=== PATIENT | female | born 1990 | race Caucasian/White ===

== ENCOUNTER 2021-07-18 03:56 | Emergency (ER) | payer SELFPAY ==
--- NOTE | 2021-07-18 03:58 | W.ED.OVERDOS ---
Documented by User: Vikram Joshi MD 08/01/21 22:49 HPI - Overdose General: Chief Complaint: Dental/Oral Stated Complaint: od Time Seen by Provider: 07/18/21 03:58 History of Present Illness: Ms. Finch is a 30-year-old lady without significant past medical history who presents to the emergency department due to concern over overdose. She reports having a broken tooth and dental pain and starting Monday (2 days ago) started taking Tylenol and Aleve. She estimates since that time she has taken approximately 20 tablets of Tylenol and 10 to 12 tablets of Aleve. Last night she awoke from sleep with epigastric discomfort associated with nausea, flushed feeling, and near syncope. She does endorse generalized abdominal pain and a history of intermittent epigastric pain after eating. Overall course of symptoms improved since worst and at worst was moderate to severe in intensity and now moderate to mild. No history of abdominal surgeries. Did have 1 episode of loose stools. Patient adamantly denies suicidal intent or history of psychiatric/suicide attempts. No other specific changes in health, exacerbating, or alleviating factors identified. Onset (ago): day(s) Review of Systems General: Reports: 10 or more systems reviewed and unremarkable except in HPI and below PFSH ED PFSH: Medical History No significant past medical history Surgical History No significant past surgical history Social History Smoking and tobacco status: never smoked Alcohol intake: never Substance/Drug Use: never Physical Exam Const: COMMON NORMALS: alert GENERAL APPEARANCE: cooperative and well developed HENMT: COMMON NORMALS: normocephalic and atraumatic HEAD & SCALP: normocephalic and atraumatic THROAT: posterior oropharynx normal OTHER: Poor dentition, most notably patient has broken tooth right lower, no evidence of abscess. Eye: COMMON NORMALS: conjunctivae normal CONJUNCTIVA: Yes conjunctivae normal SCLERA: sclerae normal Neck/C-Spine: COMMON NORMALS: supple GENERAL: Yes trachea midline Resp: COMMON NORMALS: normal respiratory effort EFFORT & INSPECTION: Yes able to speak in complete sentences Cardio: COMMON NORMALS: regular rate and regular rhythm RATE: regular rate RHYTHM: regular rhythm GI: COMMON NORMALS: Soft to palpation PALPATION: Yes Soft to palpation, Yes Tenderness to palpation present (GI), No Guarding due to palpation present (GI) and No Rigid due to palpation PERCUSSION: normal to percussion Extremity: GENERAL: Yes normal exam except as noted and No edema Neuro: COMMON NORMALS: moves all extremities SENSORIUM/ORIENTATION: Yes alert and No Orientation impaired Psych: COMMON NORMALS: mental status grossly normal and Normal thought process present THOUGHT PROCESS: Normal thought process present Course ED course: - Patient was seen and evaluated by me at bedside - Patient placed on cardiac monitors, IV access obtained - Initial evaluation notable for exam as above. Adamantly denies suicidal intent or taking medication - Labs personally interpreted by me -Fluids and symptom treatment ordered - Labs notable for leukocytosis, no significant metabolic abnormalities. Urinalysis with squamous epithelial contamination. - Patient care handed off to morning ED physician Dr. Cheng pending results of abdominal ultrasound. Likely plan for discharge. Vital Signs: Vital signs: Vital Signs Pulse Rate 73 07/18/21 06:45 Respiratory Rate 18 07/18/21 06:45 Blood Pressure 106/62 07/18/21 06:45 Pulse Oximetry 97 07/18/21 06:45 MDM - Overdose Medical Decision Making 30-year-old presenting due to concern of nausea and vomiting as well as abdominal pain associated with likely mild overdose of [id number] medications in treating dental pain. No evidence of dental abscess, poor dentition with fractured tooth identified. Labs notable for leukocytosis. Ultrasound pending at time of patient care handoff. Took patient over from Dr. Lyle patient been having some abdominal pain ultrasound here is normal blood work is normal as well she feels improved we will prescribe her PPI along with Zofran she is to follow-up with PCP and return if worsening. Medical Records I reviewed the patient's medical records. Lab Data I reviewed the patient's lab results. : 07/18/21 04:20 07/18/21 04:20 Radiology Impressions Abdomen Ultrasound 07/18/21 05:02 IMPRESSION: No acute sonographic abnormality in the visualized right upper quadrant. Laboratory Results WBC 15.5 10^3/uL (4.0-10.0) H 07/18/21 04:20 RBC 4.72 10^6/uL (4.1-5.3) 07/18/21 04:20 Hgb 13.9 g/dL (11.5-15.3) 07/18/21 04:20 Hct 42.0 % (37.0-47.0) 07/18/21 04:20 MCV 89.0 fl (81-99) 07/18/21 04:20 MCH 29.4 pg (28.0-34.0) 07/18/21 04:20 MCHC 33.1 g/dL (30.0-36.0) 07/18/21 04:20 RDW 11.8 % (12.1-15.1) L 07/18/21 04:20 Plt Count 318 10^3/cmm (130-400) 07/18/21 04:20 MPV 9.3 fL (7.4-10.4) 07/18/21 04:20 Neut % (Auto) 85.4 % 07/18/21 04:20 Lymph % (Auto) 7.0 % 07/18/21 04:20 [place] % (Auto) 6.7 % 07/18/21 04:20 Eos % (Auto) 0.2 % 07/18/21 04:20 Baso % (Auto) 0.3 % 07/18/21 04:20 Neut # (Auto) 13.23 10^3/uL (1.8-7.7) H 07/18/21 04:20 Lymph # (Auto) 1.1 10^3/uL (0.8-4.8) 07/18/21 04:20 [place] # (Auto) 1.0 10^3/uL (0.2-0.9) H 07/18/21 04:20 Eos # (Auto) 0.0 10^3/uL (0.0-0.8) 07/18/21 04:20 Baso # (Auto) 0.0 10^3/uL (0.0-0.1) 07/18/21 04:20 Nucleated RBC % (auto) 0 % 07/18/21 04:20 Nucleated RBCs # 0.0 /100WBC 07/18/21 04:20 Sodium 137 mmol/L (136-145) 07/18/21 04:20 Potassium 3.7 mmol/L (3.5-5.1) 07/18/21 04:20 Chloride 101 mmol/L (98-107) 07/18/21 04:20 Carbon Dioxide 23 mmol/L (22-29) 07/18/21 04:20 Anion Gap 16.7 (5-19) 07/18/21 04:20 BUN 14 mg/dL (6-20) 07/18/21 04:20 Creatinine 0.7 mg/dL (0.5-0.9) 07/18/21 04:20 GFR Calculation 98.3 mL/min (90-130) 07/18/21 04:20 Glucose 121 mg/dL (65-115) H 07/18/21 04:20 Calculated Osmolality 286 mOsm/kg (285-295) 07/18/21 04:20 Calcium 8.7 mg/dL (8.5-10.5) 07/18/21 04:20 Total Bilirubin 0.3 mg/dL (0.15-1.2) 07/18/21 04:20 AST 21 U/L (0-32) 07/18/21 04:20 ALT 26 U/L (0-33) 07/18/21 04:20 Alkaline Phosphatase 49 IU/L (35-105) 07/18/21 04:20 Total Protein 7.3 g/dL (6.6-8.7) 07/18/21 04:20 Albumin 4.6 g/dL (3.5-5.2) 07/18/21 04:20 Globulin 2.7 g/dL (1.3-4.6) 07/18/21 04:20 Lipase 12 U/L (13-60) L 07/18/21 04:20 HCG, Qual Negative (Negative) 07/18/21 04:20 Urine Color Dark yellow (Yellow) 07/18/21 04:20 Urine Appearance Clear (CLEAR) 07/18/21 04:20 Urine pH 6.5 (5-7) 07/18/21 04:20 Ur Specific Jew[place] 1.015 (1.005-1.030) 07/18/21 04:20 Urine Protein 2+ (Negative) H 07/18/21 04:20 Urine Glucose (UA) Norm (Normal) 07/18/21 04:20 Urine Ketones 2+ (Negative) H 07/18/21 04:20 Urine Blood Neg (Negative) 07/18/21 04:20 Urine Nitrate Negative (Negative) 07/18/21 04:20 Urine Bilirubin 1+ (Negative) H 07/18/21 04:20 Urine Urobilinogen 1 mg/dL (Negative) H 07/18/21 04:20 Ur Leukocyte Esterase 1+ (Negative) H 07/18/21 04:20 Urine RBC 0-4 /hpf (0-2) H 07/18/21 04:20 Urine WBC 25-40 /hpf (0-5) H 07/18/21 04:20 Ur Squamous Epith Cells 15-25 /hpf (0-5) H 07/18/21 04:20 Amorphous Sediment Not Reportable 07/18/21 04:20 Urine Bacteria 3+ /hpf (NONE) H 07/18/21 04:20 Urine Mucus 3+ /hpf 07/18/21 04:20 Salicylates 11.9 mg/dL (3-10) H 07/18/21 04:20 Urine Opiates Screen Negative ng/mL (Negative) 07/18/21 04:20 Acetaminophen 6.3 ug/mL (10-30) L 07/18/21 04:20 Ur Barbiturates Screen Positive ng/mL (Negative) H 07/18/21 04:20 Ur Phencyclidine Scrn Negative ng/mL (Negative) 07/18/21 04:20 Ur Amphetamines Screen Negative ng/mL (Negative) 07/18/21 04:20 U Benzodiazepines Scrn Positive ng/mL (Negative) H 07/18/21 04:20 Urine Cocaine Screen Negative ng/mL (Negative) 07/18/21 04:20 U Marijuana (THC) Screen Negative ng/mL (Negative) 07/18/21 04:20 Ethyl Alcohol < 10 mg/dL (0-10) 07/18/21 04:20 Discharge Plan Discharge Patient Disposition: Home Clinical Impression: Nausea and vomiting, Abdominal pain, Pain, dental, Leukocytosis Condition: Stable Prescriptions: New ondansetron 4 mg tablet,disintegrating 4 mg PO Q8H PRN (Reason: nausea and vomiting) Qty: 15 0RF hydrocodone-acetaminophen 5-325 mg tablet 1 tab PO Q6H PRN (Reason: pain) Qty: 10 0RF ondansetron 4 mg tablet,disintegrating 4 mg PO Q6H PRN (Reason: nausea and vomiting) Qty: 14 0RF Discharge Orders: Discharge ED (Routine); Ordered 07/18/21 Ordered By: Kitty Cheng Referrals: Jhonny Duncan MD [Physician] - [facility], [Staff Physician] - Discharge Diet: Advance as tolerated and Clear Liquid Discharge Activity: Increase activity as tolerated Patient Instructions: Dehydration (ED), Acute Nausea and Vomiting (ED), Abdominal Pain (ED) Activity Restrictions/Additional Instructions: Thank you for visiting the emergency department. You were seen and evaluated for nausea, vomiting, abdominal pain and generalized symptoms. The exact cause of your symptoms is unclear. You do have evidence of dehydration. The most common cause of the symptoms is viral in nature and I would expect these to improve over the next few days. Please ensure that you are staying hydrated and stick to clear liquids for the next 24 hours and then introduce bland foods as tolerated. I will prescribe the proton pump inhibitor to help with any gastritis, you may also use [id number] medications however please do not exceed the recommended dosages and please avoid NSAIDs. I will also prescribe antinausea medications. Please follow-up with your primary care provider. Please establish with a primary care provider if you do not currently have one. Please follow-up with a dentist. Return to the emergency department for inability tolerate oral intake, uncontrolled pain, or anything else that you are concerned about a feel needs emergency department evaluation. Coding Level of Care Code ED Lastex Operator for Chg Fwd Exam Comprehensive Documented by User: Kitty Cheng MD 07/18/21 06:37 HPI - Overdose General: Chief Complaint: Dental/Oral Stated Complaint: od Time Seen by Provider: 07/18/21 03:58 [facility] ED PFSH: Medical History No significant past medical history Surgical History No significant past surgical history Social History Smoking and tobacco status: never smoked Alcohol intake: never Substance/Drug Use: never Course Vital Signs: Vital signs: Vital Signs Pulse Rate 73 07/18/21 06:45 Respiratory Rate 18 07/18/21 06:45 Blood Pressure 106/62 07/18/21 06:45 Pulse Oximetry 97 07/18/21 06:45 MDM - Overdose Medical Decision Making Took patient over from Dr. Lyle patient been having some abdominal pain ultrasound here is normal blood work is normal as well she feels improved we will prescribe her PPI along with Zofran she is to follow-up with PCP and return if worsening. Lab Data : 07/18/21 04:20 07/18/21 04:20 Radiology Impressions Abdomen Ultrasound 07/18/21 05:02 IMPRESSION: No acute sonographic abnormality in the visualized right upper quadrant. Laboratory Results WBC 15.5 10^3/uL (4.0-10.0) H 07/18/21 04:20 RBC 4.72 10^6/uL (4.1-5.3) 07/18/21 04:20 Hgb 13.9 g/dL (11.5-15.3) 07/18/21 04:20 Hct 42.0 % (37.0-47.0) 07/18/21 04:20 MCV 89.0 fl (81-99) 07/18/21 04:20 MCH 29.4 pg (28.0-34.0) 07/18/21 04:20 MCHC 33.1 g/dL (30.0-36.0) 07/18/21 04:20 RDW 11.8 % (12.1-15.1) L 07/18/21 04:20 Plt Count 318 10^3/cmm (130-400) 07/18/21 04:20 MPV 9.3 fL (7.4-10.4) 07/18/21 04:20 Neut % (Auto) 85.4 % 07/18/21 04:20 Lymph % (Auto) 7.0 % 07/18/21 04:20 [place] % (Auto) 6.7 % 07/18/21 04:20 Eos % (Auto) 0.2 % 07/18/21 04:20 Baso % (Auto) 0.3 % 07/18/21 04:20 Neut # (Auto) 13.23 10^3/uL (1.8-7.7) H 07/18/21 04:20 Lymph # (Auto) 1.1 10^3/uL (0.8-4.8) 07/18/21 04:20 [place] # (Auto) 1.0 10^3/uL (0.2-0.9) H 07/18/21 04:20 Eos # (Auto) 0.0 10^3/uL (0.0-0.8) 07/18/21 04:20 Baso # (Auto) 0.0 10^3/uL (0.0-0.1) 07/18/21 04:20 Nucleated RBC % (auto) 0 % 07/18/21 04:20 Nucleated RBCs # 0.0 /100WBC 07/18/21 04:20 Sodium 137 mmol/L (136-145) 07/18/21 04:20 Potassium 3.7 mmol/L (3.5-5.1) 07/18/21 04:20 Chloride 101 mmol/L (98-107) 07/18/21 04:20 Carbon Dioxide 23 mmol/L (22-29) 07/18/21 04:20 Anion Gap 16.7 (5-19) 07/18/21 04:20 BUN 14 mg/dL (6-20) 07/18/21 04:20 Creatinine 0.7 mg/dL (0.5-0.9) 07/18/21 04:20 GFR Calculation 98.3 mL/min (90-130) 07/18/21 04:20 Glucose 121 mg/dL (65-115) H 07/18/21 04:20 Calculated Osmolality 286 mOsm/kg (285-295) 07/18/21 04:20 Calcium 8.7 mg/dL (8.5-10.5) 07/18/21 04:20 Total Bilirubin 0.3 mg/dL (0.15-1.2) 07/18/21 04:20 AST 21 U/L (0-32) 07/18/21 04:20 ALT 26 U/L (0-33) 07/18/21 04:20 Alkaline Phosphatase 49 IU/L (35-105) 07/18/21 04:20 Total Protein 7.3 g/dL (6.6-8.7) 07/18/21 04:20 Albumin 4.6 g/dL (3.5-5.2) 07/18/21 04:20 Globulin 2.7 g/dL (1.3-4.6) 07/18/21 04:20 Lipase 12 U/L (13-60) L 07/18/21 04:20 HCG, Qual Negative (Negative) 07/18/21 04:20 Urine Color Dark yellow (Yellow) 07/18/21 04:20 Urine Appearance Clear (CLEAR) 07/18/21 04:20 Urine pH 6.5 (5-7) 07/18/21 04:20 Ur Specific [place] 1.015 (1.005-1.030) 07/18/21 04:20 Urine Protein 2+ (Negative) H 07/18/21 04:20 Urine Glucose (UA) Norm (Normal) 07/18/21 04:20 Urine Ketones 2+ (Negative) H 07/18/21 04:20 Urine Blood Neg (Negative) 07/18/21 04:20 Urine Nitrate Negative (Negative) 07/18/21 04:20 Urine Bilirubin 1+ (Negative) H 07/18/21 04:20 Urine Urobilinogen 1 mg/dL (Negative) H 07/18/21 04:20 Ur Leukocyte Esterase 1+ (Negative) H 07/18/21 04:20 Urine RBC 0-4 /hpf (0-2) H 07/18/21 04:20 Urine WBC 25-40 /hpf (0-5) H 07/18/21 04:20 Ur Squamous Epith Cells 15-25 /hpf (0-5) H 07/18/21 04:20 Amorphous Sediment Not Reportable 07/18/21 04:20 Urine Bacteria 3+ /hpf (NONE) H 07/18/21 04:20 Urine Mucus 3+ /hpf 07/18/21 04:20 Salicylates 11.9 mg/dL (3-10) H 07/18/21 04:20 Urine Opiates Screen Negative ng/mL (Negative) 07/18/21 04:20 Acetaminophen 6.3 ug/mL (10-30) L 07/18/21 04:20 Ur Barbiturates Screen Positive ng/mL (Negative) H 07/18/21 04:20 Ur Phencyclidine Scrn Negative ng/mL (Negative) 07/18/21 04:20 Ur Amphetamines Screen Negative ng/mL (Negative) 07/18/21 04:20 U Benzodiazepines Scrn Positive ng/mL (Negative) H 07/18/21 04:20 Urine Cocaine Screen Negative ng/mL (Negative) 07/18/21 04:20 U Marijuana (THC) Screen Negative ng/mL (Negative) 07/18/21 04:20 Ethyl Alcohol < 10 mg/dL (0-10) 07/18/21 04:20 Discharge Plan Discharge Patient Disposition: Home Clinical Impression: Nausea and vomiting, Abdominal pain, Pain, dental, Leukocytosis Condition: Stable Prescriptions: New ondansetron 4 mg tablet,disintegrating 4 mg PO Q8H PRN (Reason: nausea and vomiting) Qty: 15 0RF hydrocodone-acetaminophen 5-325 mg tablet 1 tab PO Q6H PRN (Reason: pain) Qty: 10 0RF ondansetron 4 mg tablet,disintegrating 4 mg PO Q6H PRN (Reason: nausea and vomiting) Qty: 14 0RF Discharge Orders: Discharge ED (Routine); Ordered 07/18/21 Ordered By: Kitty Cheng Referrals: Jhonny Duncan MD [Physician] - [facility], [Staff Physician] - Discharge Diet: Advance as tolerated and Clear Liquid Discharge Activity: Increase activity as tolerated Patient Instructions: Dehydration (ED), Acute Nausea and Vomiting (ED), Abdominal Pain (ED) Activity Restrictions/Additional Instructions: Thank you for visiting the emergency department. You were seen and evaluated for nausea, vomiting, abdominal pain and generalized symptoms. The exact cause of your symptoms is unclear. You do have evidence of dehydration. The most common cause of the symptoms is viral in nature and I would expect these to improve over the next few days. Please ensure that you are staying hydrated and stick to clear liquids for the next 24 hours and then introduce bland foods as tolerated. I will prescribe the proton pump inhibitor to help with any gastritis, you may also use [id number] medications however please do not exceed the recommended dosages and please avoid NSAIDs. I will also prescribe antinausea medications. Please follow-up with your primary care provider. Please establish with a primary care provider if you do not currently have one. Please follow-up with a dentist. Return to the emergency department for inability tolerate oral intake, uncontrolled pain, or anything else that you are concerned about a feel needs emergency department evaluation. Coding Level of Care Code ED Lastex Operator for Kaleb Fwbing Exam Comprehensive
[2021-07-18 04:02] VITALS: BP 101/56; PULSE 88; RESP 18; O2SAT 99; BMI 28.3
[2021-07-18] MEDS: ondansetron 2 mg/ML SDV 2 mL 4 MG IVP (04:22)
[2021-07-18] MEDS: sodium chloride 0.9% 1,000 ML 999 ML IV ×2 (04:22→05:09)
[2021-07-18 04:31] LABS: Basophils % 0.3 %; Eosinophils % 0.2 %; Hemoglobin 13.9 g/dL (11.5-15.3); Lymphocytes # 1.1 10^3/uL (0.8-4.8); Mean Corpuscular HGB Conc 33.1 g/dL (30.0-36.0); Mean Corpuscular Hemoglobin 29.4 pg (28.0-34.0); Mean Platelet Volume 9.3 fL (7.4-10.4); Monocytes % 6.7 %; Neutrophils # 13.23 10^3/uL (1.8-7.7); Neutrophils % 85.4 %; Nucleated Red Blood Cells % 0 %; Platelet Count 318 10^3/cmm (130-400); Red Blood Count 4.72 10^6/uL (4.1-5.3); Red Cell Distribution Width 11.8 % (12.1-15.1); White Blood Count 15.5 10^3/uL (4.0-10.0)
[2021-07-18 04:40] LABS: HCG Qualitative Urine. Negative (Negative)
[2021-07-18 04:43] VITALS: BP 106/69; PULSE 63; RESP 16; O2SAT 99
[2021-07-18 04:46] LABS: Amphetamines Screen Urine Negative (Negative); Barbiturates Screen Urine Positive (Negative); Benzodiazepines Screen Urine Positive (Negative); Cocaine Screen Urine Negative (Negative); Opiate Screen Urine Negative (Negative); PCP Screen Urine Negative (Negative); THC Screen Urine Negative (Negative)
[2021-07-18 04:53] LABS: Acetaminophen 6.3 ug/mL (10-30); Alanine Aminotransferase 26 U/L (0-33); Albumin Level 4.6 g/dL (3.5-5.2); Alkaline Phosphatase 49 IU/L (35-105); Anion Gap 16.7 (5-19); Aspartate Amino Transferase 21 U/L (0-32); Blood Urea Nitrogen 14 mg/dL (6-20); Calcium 8.7 mg/dL (8.5-10.5); Carbon Dioxide 23 mmol/L (22-29); Chloride 101 mmol/L (98-107); Globulin 2.7 g/dL (1.3-4.6); Glomerular Filtration Rate 98.3 mL/min (90-130); Glucose 121 mg/dL (65-115); Lipase 12 U/L (13-60); Osmolality Calculated 286 mOsm/kg (285-295); Potassium 3.7 mmol/L (3.5-5.1); Salicylate 11.9 mg/dL (3-10); Sodium 137 mmol/L (136-145); Total Bilirubin 0.3 mg/dL (0.15-1.2); Total Protein 7.3 g/dL (6.6-8.7)
[2021-07-18 04:58] LABS: Alcohol Level < 10 mg/dL (0-10); Urine Appearance Clear (CLEAR); Urine Color Dark Yellow (Yellow); pH Urine 6.5 (5-7)
[2021-07-18 04:59] LABS: Add Urine Microscopic? YES; Bilirubin Urine 1+ (Negative); Blood Urine Neg (Negative); Glucose Urine UA Norm (Normal); Ketones Urine 2+ (Negative); Leukocyte Esterase Urine 1+ (Negative); Nitrate Urine Negative (Negative); Protein Urine 2+ (Negative); Specific Gravity, Urine 1.015 (1.005-1.030); Urobilinogen Urine 1 mg/dL (Negative)
[2021-07-18 05:00] LABS: Add Urine Culture? No; Bacteria Urine 3+ /hpf; Mucus Urine 3+ /hpf; RBC Urine 0-4 /hpf (0-2); Squamous Epithelial Cell Urine 15-25 /hpf (0-5); WBC Urine 25-40 /hpf (0-5)
--- NOTE | 2021-07-18 05:02 | USR_ITS ---
PROCEDURE INFORMATION: Exam: US Abdomen, Limited; Right Upper Quadrant Exam date and time: 07/18/2021 5:12 AM Age: 30 years old Clinical indication: Abdominal pain; Additional info: Ruq/biliary TECHNIQUE: Imaging protocol: US abdomen. Real time ultrasound with image documentation. Limited exam focused on the right upper quadrant. COMPARISON: No relevant prior studies available. FINDINGS: Liver: Prominent periportal echoes in the liver without focal mass. Gallbladder: No cholelithiasis, gallbladder wall edema, or pericholecystic fluid. Biliary ducts: Normal caliber of the visualized common bile duct measuring 5 mm in diameter. Pancreas: No acute sonographic abnormality in the visualized pancreas which is partially obscured by bowel gas. Right kidney: Normal right renal morphology. No hydronephrosis. Inferior vena cava: Unremarkable IVC. US/US abdomen limited [id number] IMPRESSION: No acute sonographic abnormality in the visualized right upper quadrant.
[2021-07-18] MEDS: ketorolac 30 mg/mL INJ 15 MG IVP (05:30)
[2021-07-18] MEDS: acetaminophen 500 mg Tablet 1000 MG PO (05:31)
[2021-07-18 05:37] VITALS: BP 110/71; PULSE 86; RESP 16; O2SAT 99
[2021-07-18 06:45] VITALS: BP 106/62; PULSE 73; RESP 18; O2SAT 97
== END 2021-07-18 06:47 | disposition home or self-care (01) ==
PROVIDERS: Emergency Medicine; Emergency Provider Emergency Medicine
DX: R11.2 Nausea with vomiting, unspecified (principal); R10.9 Unspecified abdominal pain; K08.89 Other specified disorders of teeth and supporting structures; D72.829 Elevated white blood cell count, unspecified
CPT/HCPCS: 76705; 80053; 80306; 80307; 81001; 81025; 83690; 85025; 96361; 96374; 96375; 99284; J1885; J2405; J7030

== ENCOUNTER 2022-04-12 14:35 | Emergency (ER) | payer BC, MEDICAID, SELFPAY ==
[2022-04-12 14:46] VITALS: BP 112/74; PULSE 80; TEMP 36.7; O2SAT 99; BMI 30.1
[2022-04-12 16:53] VITALS: PULSE 78; O2SAT 96
[2022-04-12 16:54] LABS: Basophils % 0.2 %; Eosinophils # 0.1 10^3/uL (0.0-0.8); Eosinophils % 0.8 %; Hematocrit 34.5 % (37.0-47.0); Hemoglobin 11.8 g/dL (11.5-15.3); Lymphocytes # 2.5 10^3/uL (0.8-4.8); Lymphocytes % 19.4 %; Mean Corpuscular HGB Conc 34.2 g/dL (30.0-36.0); Mean Corpuscular Hemoglobin 29.6 pg (28.0-34.0); Mean Corpuscular Volume 86.7 fl (81-99); Mean Platelet Volume 9.6 fL (7.4-10.4); Monocytes # 0.6 10^3/uL (0.2-0.9); Monocytes % 4.4 %; Neutrophils # 9.72 10^3/uL (1.8-7.7); Neutrophils % 74.8 %; Nucleated Red Blood Cells % 0 %; Platelet Count 308 10^3/cmm (130-400); Red Blood Count 3.98 10^6/uL (4.1-5.3); Red Cell Distribution Width 12.6 % (12.1-15.1)
[2022-04-12 16:58] LABS: Add Urine Microscopic? YES; Bilirubin Urine Neg (Negative); Blood Urine 3+ (Negative); Glucose Urine UA Norm (Normal); Ketones Urine Negative (Negative); Leukocyte Esterase Urine Negative (Negative); Nitrate Urine Negative (Negative); Protein Urine Neg (Negative); RBC Urine RARE /hpf (0-2); Specific Gravity, Urine 1.005 (1.005-1.030); Urine Appearance Clear (CLEAR); Urine Color Light yellow (Yellow); Urobilinogen Urine Neg (Negative); pH Urine 5 (5-7)
[2022-04-12 16:59] LABS: Add Urine Culture? No; Bacteria Urine TRACE /hpf; Squamous Epithelial Cell Urine 0-4 /hpf (0-5)
--- NOTE | 2022-04-12 17:17 | ED_ITS ---
HPI - Female Genitourinary General: Chief complaint: Urogenital-Female Stated complaint: 15wk preg, bleeding Time Seen by Provider: 04/12/22 16:13 Source: patient Mode of arrival: ambulatory History of Present Illness: 31-year-old female at 15 weeks gestation usually follows with a doctor in [place]. States she gets frequent UTIs she has had some burning with urination she had some blood after wiping no significant bleeding today she has some lower abdominal pressure and cramping. She has a confirmed intrauterine by previous ultrasound. He has been having so headache that they have been going on for a good portion of the she declines to take anything for out of concern for the . MD elicited complaint: dysuria and UTI Pertinent past history: recurrent UTIs Onset (ago): hour(s) Severity: mild Quality of pain: cramping Vaginal bleeding: scant Urinary symptoms: Dysuria Exacerbating factors: none Relieving factors: none Associated symptoms: Deny abdominal pain or nausea Treatment prior to arrival: none Date of Last Menstrual Period: 07/11/21 Review of Systems Const: Denies: fever(s), chills, body aches, change in appetite, fatigue or malaise ENMT: Denies: throat pain, ear or mastoid pain, nasal discharge or nasal congestion Card: Denies: chest pain, edema, dyspnea on exertion or orthopnea Resp: Denies: dyspnea, productive cough or non-productive cough GI: Denies: abdominal pain, nausea, vomiting, hematemesis, coffee ground emesis, diarrhea, constipation, bloating, hematochezia or melena : Denies: flank pain, difficulty voiding, dysuria, urinary frequency or urinary urgency Skin/Breast: Denies: rash or pruritus PFSH ED PFSH: Medical History No significant past medical history Surgical History No significant past surgical history Social History Smoking and tobacco status: never smoked Alcohol intake: never Female Reproductive History: Date of last menstrual period: 07/11/21 Physical Exam Const: GENERAL APPEARANCE: cooperative and comfortable ORIENTATION/CONSCIOUSNESS: Yes awake, Yes oriented to person, Yes oriented to place and Yes oriented to time HENMT: COMMON NORMALS: normocephalic, atraumatic and hearing grossly normal bilaterally HEAD & SCALP: normocephalic and atraumatic Resp: COMMON NORMALS: normal respiratory effort, No retractions, No use of accessory muscles and clear to auscultation bilaterally AUSCULTATION: clear to auscultation bilaterally Cardio: COMMON NORMALS: regular rate, regular rhythm and No murmurs present (Cardio) RATE: regular rate RHYTHM: regular rhythm GI: COMMON NORMALS: Soft to palpation and No hepatosplenomegaly present AUSCULTATION: Yes normoactive bowel sounds PALPATION: Yes Soft to palpation, No Tenderness to palpation present (GI), No Guarding due to palpation present (GI) and Yes No hepatosplenomegaly present : OTHER: Patient placed in dorsolithotomy position 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 Speculum introduced cervix visualized there is a slightly blood-tinged mucopuru lent drainage from the cervix no active bleeding. Cultures for GC chlamydia and wet mount and genital general culture completed. Extremity: COMMON NORMALS: normal to inspection, capillary refill normal, no clubbing, cyanosis or edema, no calf tenderness and no pedal edema Neuro: SENSORIUM/ORIENTATION: Yes oriented to person, Yes oriented to place and Yes oriented to time Skin: COMMON NORMALS: no rashes or lesions noted GENERAL SKIN EXAM: no rashes or lesions noted Course Vital Signs: Vital signs: Vital Signs Temperature 98.0 F 04/12/22 14:46 Pulse Rate 78 04/12/22 16:53 Respiratory Rate 18 04/12/22 18:09 Blood Pressure 112/74 04/12/22 14:46 Pulse Oximetry 99 04/12/22 18:09 Oxygen Delivery Me thod 04/12/22 16:53 MDM - Female Medical Decision Making heart tones negative. Pending culture results treat empirically with 1 g p.o. Zithromax 500 IM Rocephin. Urine showed 3+ blood on the dip but rare red b lood cells and only squamous cells negative leukocyte esterase. heart tones toppled 140s 150s. Discharge patient home follow-up with primary care return if is further problems. Medical Records I reviewed the patient's medical records. Lab Data I reviewed the patient's lab results. 04/12/22 16:40 04/12/22 16:40 Laboratory Results WBC 13.0 10^3/uL (4.0-10.0) H 04/12/22 16:40 RBC 3.98 10^6/uL (4.1-5.3) L 04/12/22 16:40 Hgb 11.8 g/dL (11.5-15.3) 04/12/22 16:40 Hct 34.5 % (37.0-47.0) L 04/12/22 16:40 MCV 86.7 fl (81-99) 04/12/22 16:40 MCH 29.6 pg (28.0-34.0) 04/12/22 16:40 MCHC 34.2 g/dL (30.0-36.0) 04/12/22 16:40 RDW 12.6 % (12.1-15.1) 04/12/22 16:40 Plt Count 308 10^3/cmm (130-400) 04/12/22 16:40 MPV 9.6 fL (7.4-10.4) 04/12/22 16:40 Neut % (Auto) 74.8 % 04/12/22 16:40 Lymph % (Auto) 19.4 % 04/12/22 16:40 Coal % (Auto) 4.4 % 04/12/22 16:40 Eos % (Auto) 0.8 % 04/12/22 16:40 Baso % (Auto) 0.2 % 04/12/22 16:40 Neut # (Auto) 9.72 10^3/uL (1.8-7.7) H 04/12/22 16:40 Lymph # (Auto) 2.5 10^3/uL (0.8-4.8) 04/12/22 16:40 Coal # (Auto) 0.6 10^3/uL (0.2-0.9) 04/12/22 16:40 Eos # (Auto) 0.1 10^3/uL (0.0-0.8) 04/12/22 16:40 Baso # (Auto) 0.0 10^3/uL (0.0-0.1) 04/12/22 16:40 Nucleated RBC % (auto) 0 % 04/12/22 16:40 Nucleated RBCs # 0.0 /100WBC 04/12/22 16:40 Sodium 137 mmol/L (136-145) 04/12/22 16:40 Potassium 3.6 mmol/L (3.5-5.1) 04/12/22 16:40 Chloride 101 mmol/L (98-107) 04/12/22 16:40 Carbon Dioxide 23 mmol/L (22-29) 04/12/22 16:40 Anion Gap 16.6 (5-19) 04/12/22 16:40 BUN 8 mg/dL (6-20) 04/12/22 16:40 Creatinine 0.5 mg/dL (0.5-0.9) 04/12/22 16:40 GFR Calculation 143.9 mL/min (90-130) H 04/12/22 16:40 Glucose 94 mg/dL (65-115) 04/12/22 16:40 Calculated Osmolality 282 mOsm/kg (285-295) L 04/12/22 16:40 Calcium 9.3 mg/dL (8.5-10.5) 04/12/22 16:40 Total Bilirubin 0.2 mg/dL (0.15-1.2) 04/12/22 16:40 AST 16 U/L (0-32) 04/12/22 16:40 ALT 14 U/L (0-33) 04/12/22 16:40 Alkaline Phosphatase 49 U/L (35-105) 04/12/22 16:40 Total Protein 7.0 g/dL (6.6-8.7) 04/12/22 16:40 Albumin 4.3 g/dL (3.5-5.2) 04/12/22 16:40 Globulin 2.7 g/dL (1.3-4.6) 04/12/22 16:40 Ser , Semi-Qnt 03968.00 mIU/mL 04/12/22 16:40 Urine Color Light yellow (Yellow) 04/12/22 16:23 Urine Appearance Clear (CLEAR) 04/12/22 16:23 Urine pH 5 (5-7) 04/12/22 16:23 Ur Specific [place] 1.005 (1.005-1.030) 04/12/22 16:23 Urine Protein Neg (Negative) 04/12/22 16:23 Urine Glucose (UA) Norm (Normal) 04/12/22 16:23 Urine Ketones Negative (Negative) 04/12/22 16:23 Urine Blood 3+ (Negative) H 04/12/22 16:23 Urine Nitrate Negative (Negative) 04/12/22 16:23 Urine Bilirubin Neg (Negative) 04/12/22 16:23 Urine Urobilinogen Neg mg/dL (Negative) 04/12/22 16:23 Ur Leukocyte Esterase Negative (Negative) 04/12/22 16:23 Urine RBC Rare /hpf (0-2) 04/12/22 16:23 Urine WBC None /hpf (0-5) 04/12/22 16:23 Ur Squamous Epith Cells 0-4 /hpf (0-5) H 04/12/22 16:23 Amorphous Sediment Not Reportable 04/12/22 16:23 Urine Bacteria Trace /hpf (NONE) 04/12/22 16:23 Discharge Plan Discharge Patient Disposition: Home Clinical Impression: Cervicitis, Currently Condition: Stable Prescriptions: No Action folic acid 1 mg tablet 1 mg PO DAILY 28 mg iron- 800 mcg Tablet 1 tab PO DAILY Discharge Orders: Discharge ED (Routine); Ordered 04/12/22 Ordered By: Ry Guallpa Patient Instructions: Opioid Safety, Pain Management Activity Restrictions/Additional Instructions: You are seen today with complaint of vaginal bleeding. There was no active bleeding on the pelvic exam however there was some blood-tinged purulent discharge. Empirically you were treated for cervicitis with ceftriaxone and Zithromax cultures and wet mount are pending. Follow-up with your doctor within the next week. 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
[2022-04-12 17:38] LABS: Alanine Aminotransferase 14 U/L (0-33); Albumin Level 4.3 g/dL (3.5-5.2); Alkaline Phosphatase 49 U/L (35-105); Anion Gap 16.6 (5-19); Aspartate Amino Transferase 16 U/L (0-32); Blood Urea Nitrogen 8 mg/dL (6-20); Calcium 9.3 mg/dL (8.5-10.5); Carbon Dioxide 23 mmol/L (22-29); Chloride 101 mmol/L (98-107); Globulin 2.7 g/dL (1.3-4.6); Glomerular Filtration Rate 143.9 mL/min (90-130); Glucose 94 mg/dL (65-115); Osmolality Calculated 282 mOsm/kg (285-295); Potassium 3.6 mmol/L (3.5-5.1); Sodium 137 mmol/L (136-145); Total Bilirubin 0.2 mg/dL (0.15-1.2)
[2022-04-12] MEDS: azithromycin 250 mg Tablet 1000 MG PO (18:08)
[2022-04-12] MEDS: cefTRIAXone 500 MG in water for injection-sterile 1 ML IM (18:08)
[2022-04-12 18:09] VITALS: RESP 18; O2SAT 99
== END 2022-04-12 18:10 | disposition home or self-care (01) ==
PROVIDERS: Emergency Provider Family Medicine
DX: O23.512 Infections of cervix in pregnancy, second trimester (principal); Z3A.15 15 weeks gestation of pregnancy
CPT/HCPCS: 36415; 80053; 81001; 84702; 85025; 87210; 87491; 87591; 87661; 96372; 99284; J0696; Q0144